=== PATIENT | male | born 1940 | race Caucasian/White ===

== ENCOUNTER 2018-02-28 09:55 | Emergency (ER) | payer MEDICARE, BC ==
[~2018-02-28] VITALS: Ht 172.7 cm; Wt 81.8 kg
[2018-02-28 10:47] LABS: BASO % 0.2 % (0.0-1.0); EOS # 0.2 10^3/uL (0.0-0.50); EOS % 1.6 % (0.0-3.0); HEMATOCRIT 44.2 % (42.0-52.0); HEMOGLOBIN 14.7 g/dl (13.5-17.5); LYMPH # 1.5 10^3/uL (1.5-4.5); LYMPH % 13.9 % (24.0-44.0); MEAN CORPUSCULAR HEMOGLOBIN 29.9 pg (27.0-33.0); MEAN CORPUSCULAR HGB CONC 33.3 g/dl (32.0-36.5); MEAN CORPUSCULAR VOLUME 89.8 fl (80.0-96.0); MONO # 0.7 10^3/uL (0.0-0.8); MONO % 6.3 % (0.0-5.0); NEUTROPHILS # 8.2 10^3/uL (1.8-7.7); NEUTROPHILS % 77.3 % (36.0-66.0); PLATELET COUNT, AUTOMATED 270 10^3/uL (150-450); RED BLOOD COUNT 4.92 10^6/uL (4.30-6.10); WHITE BLOOD COUNT 10.6 10^3/uL (4.0-10.0)
[2018-02-28] MEDS ORDERED: XARE20TA PO (10:55)
[2018-02-28] MEDS ORDERED: DILT240C14 PO (10:55)
[2018-02-28] MEDS ORDERED: ALTA1CAP4 PO (10:55)
[2018-02-28] MEDS ORDERED: NEXI40CA PO (10:55)
[2018-02-28] MEDS ORDERED: ALLO10TA PO (10:55)
[2018-02-28 10:56] LABS: INR 1.25; PROTHROMBIN TIME 15.9 SECONDS (12.1-14.4)
[2018-02-28 11:15] LABS: BLOOD UREA NITROGEN 23 MG/DL (7-18); CARBON DIOXIDE LEVEL 24 MEQ/L (21-32); CHLORIDE LEVEL 108 MEQ/L (98-107); CREATININE FOR GFR 1.07 MG/DL (0.70-1.30); GLOMERULAR FILTRATION RATE > 60.0 (>42); GLUCOSE, FASTING 142 MG/DL (70-100); POTASSIUM SERUM 3.8 MEQ/L (3.5-5.1); SODIUM LEVEL 143 MEQ/L (136-145)
[2018-02-28 12:30] VITALS: BP 164/74
--- NOTE | 2018-02-28 13:27 | REP ---
CT abdomen and pelvis without IV or oral contrast: History: Painless hematuria. No comparison study. CT findings: Digital preliminary hospice administrator radiograph demonstrates multiple nodular opacities at the lung bases. Bowel gas pattern is normal. On lung window settings, there are numerous bilateral pulmonary nodules, several of which are and many of which are not calcified. I cannot exclude pulmonary metastatic disease. There is a moderate size sliding type hiatal hernia. No adrenal lesion is seen. No focal hepatic or splenic lesion is observed. There is no evidence of a hydronephrosis. There is a small low density area in the upper pole of the right kidney, 1.4 cm in diameter consistent with a cyst. There is another cyst in the parenchyma of the lower pole, 1.5 cm in diameter. No renal mass lesion is observed. No bladder mass or calculus is seen. Seminal vesicles and prostate are unremarkable. There is moderate left colonic diverticulosis without CT evidence of diverticulitis. Normal appendix is seen. A small umbilical hernia is seen transmitting abdominal fat. Extensive vascular calcification is noted. No aneurysm is seen. There is degenerative spondylosis in the lumbar spine. Impression: There are two small cysts right kidney. Hiatal hernia is noted. Left colonic diverticulosis is seen. There are multiple calcified and multiple noncalcified pulmonary nodules throughout the lung bases. The significance of this finding is uncertain. In the absence of prior radiographic studies. I cannot exclude pulmonary metastatic disease. Electronically Signed by Iam Celis MD 02/28/2018 07:39 P
--- NOTE | 2018-03-02 08:27 | ED PDOC ---
Post-Departure Follow-Up dr cho and dr delilah parada faxed formal report of ct abd/p for fu Marquis Eden MD Mar 02, 2018 08:27
== END 2018-02-28 12:37 | disposition home or self-care (01) ==
LOC: M ED 09:55
DX: R31.9 Hematuria, unspecified (principal); I10 Essential (primary) hypertension; I48.91 Unspecified atrial fibrillation

== ENCOUNTER → 2020-01-02 | Outpatient (REF) | payer MEDICARE, BC ==
[~2020-01-02] MED LIST: ALLO10TA PO; ALTA1CAP4 PO; DILT240C82 PO; NEXI40CA PO; XARE20TA PO
[2020-01-02 16:43] LABS: BLOOD UREA NITROGEN 13 MG/DL (7-18); CARBON DIOXIDE LEVEL 23 MEQ/L (21-32); CHLORIDE LEVEL 100 MEQ/L (98-107); CREATININE FOR GFR 0.97 MG/DL (0.70-1.30); GLOMERULAR FILTRATION RATE > 60.0 (>35); GLUCOSE, FASTING 118 MG/DL (70-100); POTASSIUM SERUM 4.7 MEQ/L (3.5-5.1); SODIUM LEVEL 131 MEQ/L (136-145)
== END ==
LOC: M LABSMT 13:52
PROVIDERS: ATTEND Specialist
DX: R31.9 Hematuria, unspecified (principal)

== ENCOUNTER → 2020-01-15 | Outpatient (CLI) | payer MEDICARE, BC ==
[~2020-01-15] MED LIST changes: +ISOVUE-370 76% 100ML VIAL As Ordered ONE
--- NOTE | 2020-01-15 12:11 | REP ---
INDICATION: HEMATURIA. COMPARISON: 02/28/2018 a noncontrast enhanced exam TECHNIQUE: 100 cc Isovue 370 FINDINGS: There are multiple calcified and noncalcified nodules in the lung bases. These have a stable appearance. The pre contrast-enhanced portion examination shows no significant change from the prior exam. The contrast-enhanced portion examination shows the liver, gallbladder, spleen, and right adrenal gland to be unremarkable. There is no unchanged benign left adrenal gland nodule. There are right renal cysts which are unchanged but better imaged after intravenous contrast administration. There is no significant change in appearance of the abdominal aorta or para-aortic regions. Calcific atheromatous changes are noted status quo. There is no significant change in appearance of the bowel loops or the mesenteries. Note is again made of a hiatal hernia which is rather large but unchanged. There is colonic diverticulosis status quo. There is no free fluid or free air. There is no evidence of an intra-abdominal mass or adenopathy. There is prostatomegaly which may have increased slightly from the prior exam. Bone window technique throughout the examination shows no significant change in appearance of the osseous structures. IMPRESSION: There has been no significant change compared to the prior exam with findings as described above. <Electronically signed by Gaurang Alford > 01/15/20 [id number]
== END ==
LOC: M RAD 10:34
PROVIDERS: ATTEND Specialist
DX: R31.9 Hematuria, unspecified (principal); R91.8 Other nonspecific abnormal finding of lung field; N28.1 Cyst of kidney, acquired; I70.0 Atherosclerosis of aorta; K44.9 Diaphragmatic hernia without obstruction or gangrene; K57.90 Diverticulosis of intestine, part unspecified, without perforation or abscess without bleeding; N40.0 Benign prostatic hyperplasia without lower urinary tract symptoms
CPT/HCPCS: 74178; Q9967

== ENCOUNTER → 2020-12-31 | Outpatient (REF) | payer MEDICARE, BC ==
[~2020-12-31] MED LIST changes: -ISOVUE-370 76% 100ML VIAL As Ordered ONE
[2020-12-31 15:47] LABS: BASO % 0.4 % (0.0-1.0); EOS # 0.2 10^3/uL (0.0-0.5); EOS % 2.2 % (0.0-3.0); HEMATOCRIT 37.4 % (42.0-52.0); HEMOGLOBIN 12.2 g/dl (13.5-17.5); LYMPH % 25.4 % (24.0-44.0); MEAN CORPUSCULAR HEMOGLOBIN 27.5 pg (27.0-33.0); MEAN CORPUSCULAR HGB CONC 32.6 g/dl (32.0-36.5); MEAN CORPUSCULAR VOLUME 84.4 fl (80.0-96.0); MONO # 0.6 10^3/uL (0.0-0.8); MONO % 7.3 % (2.0-8.0); NEUTROPHILS % 64.3 % (36.0-66.0); PLATELET COUNT, AUTOMATED 309 10^3/uL (150-450); RED BLOOD COUNT 4.43 10^6/uL (4.30-6.10); WHITE BLOOD COUNT 7.8 10^3/uL (4.0-10.0)
[2020-12-31 16:26] LABS: ALBUMIN 3.8 GM/DL (3.2-5.2); ALT/SGPT 21 U/L (12-78); BILIRUBIN,TOTAL 0.5 MG/DL (0.2-1.0); BLOOD UREA NITROGEN 17 MG/DL (7-18); CALCIUM LEVEL 9.1 MG/DL (8.8-10.2); CARBON DIOXIDE LEVEL 26 MEQ/L (21-32); CHLORIDE LEVEL 101 MEQ/L (98-107); CHOLESTEROL LEVEL 192 MG/DL (<200); CREATININE FOR GFR 0.97 MG/DL (0.70-1.30); GLOMERULAR FILTRATION RATE > 60.0 (>35); GLUCOSE, FASTING 118 MG/DL (70-100); HDL CHOLESTEROL 73 MG/DL (>40); LDH LACTATE DEHYDROGENASE 163 U/L (87-241); LDL CHOLESTEROL 101 MG/DL (<100); NON-HDL-C 119 MG/DL; PHOSPHORUS LEVEL 3.7 MG/DL (2.5-4.9); POTASSIUM SERUM 4.3 MEQ/L (3.5-5.1); PROSTATIC SPECIFIC AG MONITOR 0.84 NG/ML (< 4.00); SODIUM LEVEL 134 MEQ/L (136-145); THYROID STIMULATING HORMONE 0.867 uIU/ML (0.358-3.740); TOTAL PROTEIN 6.6 GM/DL (6.4-8.2); TRIGLYCERIDES LEVEL 92 MG/DL (<150); URIC ACID 3.1 MG/DL (3.5-7.2)
[2020-12-31 16:28] LABS: TOTAL 25(OH) VITAMIN D 57.5 NG/ML (30.0-100.0)
== END ==
LOC: M LABDRAWC 15:27
PROVIDERS: ATTEND Internal Medicine
DX: E78.5 Hyperlipidemia, unspecified (principal); I10 Essential (primary) hypertension; N40.1 Benign prostatic hyperplasia with lower urinary tract symptoms; E55.9 Vitamin D deficiency, unspecified; Z79.899 Other long term (current) drug therapy

== ENCOUNTER → 2021-09-14 | Outpatient (REF) | payer MEDICARE, BC ==
[2021-09-14 13:56] LABS: BLOOD UREA NITROGEN 16 MG/DL (7-18); CALCIUM LEVEL 8.7 MG/DL (8.8-10.2); CARBON DIOXIDE LEVEL 22 MEQ/L (21-32); CHLORIDE LEVEL 112 MEQ/L (98-107); CREATININE FOR GFR 0.68 MG/DL (0.70-1.30); GLOMERULAR FILTRATION RATE > 60.0 (>35); GLUCOSE, FASTING 108 MG/DL (70-100); POTASSIUM SERUM 4.2 MEQ/L (3.5-5.1); SODIUM LEVEL 142 MEQ/L (136-145)
== END ==
LOC: M LAB REF 13:07
PROVIDERS: ATTEND Internal Medicine
DX: Z00.00 Encounter for general adult medical examination without abnormal findings (principal); I10 Essential (primary) hypertension